=== PATIENT | female | born 1980 | race Caucasian/White ===

== ENCOUNTER → 2017-10-14 | Outpatient (CLI) | payer BC | END | disposition home or self-care (01) | LOC: CDC 11:29 | DX: Z01.810 Encounter for preprocedural cardiovascular examination (principal); R00.0 Tachycardia, unspecified; R94.31 Abnormal electrocardiogram [ECG] [EKG] | CPT/HCPCS: 93000 ==

== ENCOUNTER → 2017-10-28 | Outpatient (CLI) | payer BC | END | disposition home or self-care (01) | LOC: CDC 11:56 | DX: Z01.810 Encounter for preprocedural cardiovascular examination (principal) | CPT/HCPCS: 93000 ==

== ENCOUNTER 2018-01-23 05:36 | Day surgery (SDC) | payer BC ==
[~2018-01-23] VITALS: Ht 182.9 cm; Wt 81.6 kg
[~2018-01-23 05:36] MED LIST: ATENOLOL50 MG PO; NORVASC10 MG PO; SUBOXONE 8 MG-1 EAC2 SL; TOPROL XL50 MG PO; XANAX0.25 MG PO
[2018-01-23 06:10] VITALS: BP 118/76
[2018-01-23] MEDS ORDERED: IBUPROFEN800 MG PO (07:33)
[2018-01-23] MEDS ORDERED: ENDOCET 5-3251 EACH PO (07:33)
[2018-01-23 12:05] VITALS: BP 108/51
[2018-01-23 13:05] VITALS: BP 105/58
== END 2018-01-23 13:35 | disposition home or self-care (01) ==
LOC: SDC 05:36
DX: D25.9 Leiomyoma of uterus, unspecified (principal); N92.0 Excessive and frequent menstruation with regular cycle; N94.6 Dysmenorrhea, unspecified; I10 Essential (primary) hypertension; F17.210 Nicotine dependence, cigarettes, uncomplicated
CPT/HCPCS: 84702; 85025; 86850; 86900; 86901; 88307; J0131; J0330; J0690; J1100; J1170; J1885; J2250; J2405; J2710; J2795; S0020